=== PATIENT | male | born 1930 | race Caucasian/White ===

== ENCOUNTER 2018-03-11 10:49 | Observation (INO) | payer MEDICARE ==
[2018-03-11 11:32] LABS: #Eosinphils 0.1 thou/uL (0.0-0.7); #Lymphocytes 2.2 thou/uL (1.20-3.40); #Monocytes 0.7 thou/uL (0.11-0.59); #Neutrophils 8.2 thou/uL (1.40-6.50); %Basophils 0.2 % (0.0-1.0); %Eosinophils 0.6 % (0.0-10.0); %Lymphocytes 19.8 % (21.0-51.0); %Monocytes 5.8 % (0.0-10.0); %Neutrophils 73.7 % (42.0-75.0); Hemoglobin 13.1 g/dL (14.0-18.0); Mean Corpuscular HGB CONC 33.3 g/dL (32.0-36.0); Mean Corpuscular Hemoglobin 28.9 pg (27.0-31.0); Mean Corpuscular Volume 86.9 fL (78.0-98.0); Mean Platelet Volume 7.5 fL (7.4-10.4); Platelet Count 363 thou/uL (130-400); Red Blood Cell (RBC) Count 4.52 mill/uL (4.70-6.10); White Blood Cell (WBC) Count 11.2 thou/uL (4.8-10.8)
[2018-03-11 11:52] LABS: ALT (SGPT) 28 U/L (8-55); AST (SGOT) 28 U/L (5-34); Albumin 3.6 g/dL (3.4-4.8); Alkaline Phosphatase 77 U/L (40-150); Anion Gap 17 mmol/L (10-20); BUN (Urea Nitrogen) 14 mg/dL (8.4-25.7); Bilirubin, Total 0.6 mg/dL (0.2-1.2); CK (CPK) 145 U/L (30-200); Calc. Creatinine Clearance 0 mL/min (70-130); Calcium 10.5 mg/dL (7.8-10.44); Carbon Dioxide 24 mmol/L (23-31); Chloride 100 mmol/L (98-107); Estimated GFR-MDRD 62; Globulin 3.6 g/dL (2.4-3.5); Glucose 125 mg/dL (83-110); Lipase 30 U/L (8-78); Potassium 3.1 mmol/L (3.5-5.1); Protein, Total 7.2 g/dL (5.8-8.1); Sodium 138 mmol/L (136-145)
--- NOTE | 2018-03-11 12:06 | RAD ---
PORTABLE CHEST: History: Mental status change. Comparison: 2012 FINDINGS: Lungs appear clear of acute infiltrate. Mild interstitial prominence in the right lung was noted on p rior study. No evidence of vascular congestion or edema. Heart and mediastinum are unremarkable. IMPRESSION: No evidence of acute process. POS: [facility]
--- NOTE | 2018-03-11 12:08 | CT ---
CT HEAD WITHOUT CONTRAST: Technique: Multiple contiguous axial images were obtained through the head without IV enhancement. Indications: Mental status change. FINDINGS: Mild to moderate cortical atrophy and associated ventriculomegaly which appears appropriate to the de gree of atrophy. No mass or hemorrhage. No evidence of cortical infarct. There is opacification of the right frontal sinus and anterior ethmoid air cells. The visualized maxi llary sinuses, sphenoid sinus and mastoid air cells are clear. IMPRESSION: 1. Cortical atrophy consistent with age. No acute intracranial process. 2. Opacification of the right frontal sinus and anterior ethmoid air cells. POS: [facility]
[2018-03-11 13:01] LABS: Bilirubin Moderate (Negative); Blood, Urine Small (Negative); Clarity CLEAR (Clear); Glucose, Urine (Dipstick) Negative (Negative); Leukocyte Trace (Negative); Nitrite Negative (Negative); Protein, Urine (Dipstick) 100 mg/dL (Neg-Trace); Specific Gravity, Urine 1.014 (1.002-1.036)
[2018-03-11 13:03] LABS: Bacteria/HPF None Seen HPF (None Seen); Hyaline Casts/LPF 7-10 HYALINE CAST LPF (0-3 Hyaline); Pathc Cast-AUWi Flag 1.59 (0-2.49); Squamous Epithelial 0-3 HPF (0-3)
[2018-03-11] MEDS ORDERED: Senokot S 8.6-50 MG TAB PO PRN (15:58)
[2018-03-11] MEDS ORDERED: Acetaminophen 650 MG Suppository PR PRN (15:58)
[2018-03-11] MEDS ORDERED: hydrALAZINE 20 MG/ML VIAL SLOW IVP PRN (15:58)
[2018-03-11] MEDS ORDERED: Acetaminophen 325 MG TAB PO PRN (15:58)
[2018-03-11] MEDS ORDERED: Potassium Chloride 20 MEQ TAB PO SCH (17:00)
--- NOTE | 2018-03-11 17:13 | HP ---
PRIMARY CARE PROVIDER: Dr. Ozzy Rai. CHIEF COMPLAINT: Weakness. HISTORY OF PRESENT ILLNESS: Mr. Sheikh is a pleasant 88-year-old gentleman, who was seen at [facility] on March 11, 2018. Mr. Sheikh is able to provide some history. Collateral history was obtained from family members by the bedside. Family reports that Mr. Sheikh has had progressively worsening cognition over the last 2 to 3 weeks. They particularly comment that his balance has been off over the last 2 or 3 weeks. They report that he has started having shuffling gait. It appears that Mr. Sheikh had a fall about a week ago. Two nights ago, he had another fall. He reports that he fell in his kitchen. He could not get up. He was able to get up the following day after one of his family members went to check on him. He was subsequently brought to the emergency room. REVIEW OF SYSTEMS: All other systems reviewed and found to be negative. PAST MEDICAL HISTORY: Benign prostate hypertrophy and dyslipidemia. He reports that he was on Crestor in the past, but was told that he no longer needed it. SURGICAL HISTORY: Tonsillectomy. PSYCHIATRIC HISTORY: None. SOCIAL HISTORY: The patient drinks one or two glasses of wine on a daily basis. FAMILY HISTORY: No family history of premature coronary artery disease. CODE STATUS: I discussed his code status. He is DNAR. ALLERGIES: NO KNOWN DRUG ALLERGIES. CURRENT MEDICATIONS: 1. Tamsulosin 0.4 mg daily. 2. Aspirin 81 mg daily. 3. Finasteride 5 mg daily. PHYSICAL EXAMINATION: GENERAL: On examination, Mr. Sheikh is awake and alert, not in acute distress. VITAL SIGNS: Blood pressure is 166/99, pulse 74, respiratory rate 12, and oxygen saturation 97% on room air. He is afebrile. EYES: No scleral icterus, no conjunctival pallor. ENT: Dry mucosal membranes, no oropharyngeal erythema or exudates. NECK: Supple, nontender, trachea is midline. RESPIRATORY: Accessory muscles of breathing are not active. Chest wall movements are symmetric bilaterally. LUNGS: Clear to auscultation without wheeze, rhonchi, or crepitations. CARDIOVASCULAR: S1 and S2 are heard, regular. Peripheral pulses palpable. No carotid bruit. No pericardial rub. ABDOMEN: Soft, nontender, bowel sounds heard. No hepatomegaly, no splenomegaly. NEUROLOGIC: Cranial nerves 2 through 12 are intact. Power is 5/5 in all four extremities. Deep tendon reflexes are 2+, plantar reflexes downgoing bilaterally. No focal motor or sensory deficits. I was unable to ambulate the patient. Emergency room physician examined him for Romberg's and reports that he had a positive Romberg's, falling to his right. MUSCULOSKELETAL: Power is 5/5 in all four extremities. SKIN: No rashes or subcutaneous nodules. LYMPHATIC: No cervical lymphadenopathy. PSYCHIATRIC: Normal mood, normal affect. The patient is oriented to person, place, and time. LABORATORY DATA: Mr. Sheikh' labs and investigations were reviewed. I reviewed his electrocardiogram, which shows normal sinus rhythm, no ST changes to suggest an acute coronary syndrome. I also reviewed his chest x-ray, which does not show any pulmonary infiltrates. Noncontrast CT scan of the brain showed cortical atrophy consistent with age, no acute intracranial process and opacification of the right frontal sinus and anterior ethmoidal air cells. He has leukocytosis with 11,200 white cells, of which 73.7% are neutrophils, normocytic anemia with hemoglobin 13.1, normal platelet count of 363,000, normal sodium, decreased potassium of 3.1, normal troponin-I, normal lipase, unremarkable liver profile, and urinalysis that is positive for trace amount of leukocyte esterase, ketones and blood. ASSESSMENT AND PLAN: Mr. Sheikh is a pleasant 88-year-old gentleman, who was seen at [facility] on March 11, 2018. His problem list includes: 1. Weakness: Mr. Sheikh is presenting with weakness, etiology unclear. He will be admitted to the hospital for further investigations, including stroke workup. We will check MRI of the brain, 2D echocardiogram and carotid Dopplers. We will consult Neurology Service. We will add Plavix to aspirin, which he is already taking. 2. Hypokalemia: We will replace potassium and recheck. 3. Benign prostate hypertrophy: Appears to be stable, we will continue tamsulosin and finasteride. 4. Dyslipidemia: The patient is currently not on statins. There is evidence of stroke, he will be started on statin. Many thanks for allowing me to participate in your patient's care. Please feel free to contact me with any questions or concerns. LEVEL OF RISK: High. LEVEL OF COMPLEXITY: High. Job ID: [id number]
--- NOTE | 2018-03-11 18:29 | MRI ---
BRAIN MRI NONCONTRAST: 03/11/18 INDICATION: Gait imbalance, with falling episodes. Clinical concern for stroke. FINDINGS: There is prominence of ventricular system with mild global atrophy. There is no acute territorial inf arction, intracranial mass effect of midline shift. Mild periventricular white matter signal abnormal ity is present. Skull base flow voids are maintained. There is paranasal sinus opacification involvin g right frontal air cell with associated periosteal thickening as well as bilateral anterior ethmoid air cells. IMPRESSION: Global atrophy with compensatory dilatation of ventricular system. Minimal periventricular white matter signal abnormality. Frontal and ethmoidal sinus inflammatory opacification with associated periosteal thickening and scle rosis about the right frontal air cell. POS: [facility]
[2018-03-11] MEDS: Sodium Chloride 0.9% 1,000 ML IV SCH (19:15)
[2018-03-11 19:26] VITALS: BMI 21.3
--- NOTE | 2018-03-11 21:24 | ULT ---
CAROTID DOPPLER 03/11/18 PROVIDED CLINICAL HISTORY: Stroke. FINDINGS: Vaughn scale and color doppler sonography with spectral analysis was performed of the extracranial bush tid system bilaterally. There is no evidence for a hemodynamically significant internal carotid artery stenosis by peak systo lic velocity or ratio criteria. Antegrade flow is seen in the vertebral arteries. There is nonspecifi c elevation of peak systolic velocity within the proximal right common carotid artery to 191 cm/s. IMPRESSION: 1. No evidence for a hemodynamically significant internal carotid artery stenosis. 2. Focally elevated velocity within the proximal right common carotid artery may reflect stenosi s. Consider correlation with CT angiography. POS: [facility]
[2018-03-12 04:46] LABS: #Eosinphils 0.1 thou/uL (0.0-0.7); #Lymphocytes 2.3 thou/uL (1.20-3.40); #Monocytes 0.5 thou/uL (0.11-0.59); #Neutrophils 4.5 thou/uL (1.40-6.50); %Basophils 0.3 % (0.0-1.0); %Eosinophils 1.6 % (0.0-10.0); %Lymphocytes 30.6 % (21.0-51.0); %Monocytes 7.2 % (0.0-10.0); %Neutrophils 60.3 % (42.0-75.0); Hemoglobin 10.7 g/dL (14.0-18.0); Mean Corpuscular HGB CONC 33.2 g/dL (32.0-36.0); Mean Corpuscular Hemoglobin 28.7 pg (27.0-31.0); Mean Corpuscular Volume 86.3 fL (78.0-98.0); Mean Platelet Volume 7.7 fL (7.4-10.4); Platelet Count 273 thou/uL (130-400); Red Blood Cell (RBC) Count 3.72 mill/uL (4.70-6.10); White Blood Cell (WBC) Count 7.4 thou/uL (4.8-10.8)
[2018-03-12 05:10] LABS: Anion Gap 13 mmol/L (10-20); BUN (Urea Nitrogen) 15 mg/dL (8.4-25.7); Calc. Creatinine Clearance 47 mL/min (70-130); Calcium 9.3 mg/dL (7.8-10.44); Carbon Dioxide 26 mmol/L (23-31); Cardiac Risk 5.2 (Less than 4.5); Chloride 105 mmol/L (98-107); Cholesterol 186 mg/dl (< 200 Desired); Estimated GFR-MDRD 63; Glucose 114 mg/dL (83-110); HDL Cholesterol 36 mg/dL (>60 Neg Risk); LDL Cholesterol, Calculated 126 mg/dL; Potassium 3.2 mmol/L (3.5-5.1); Sodium 141 mmol/L (136-145); Triglycerides 121 mg/dL (Less than 150)
[2018-03-12] MEDS: Sodium Chloride 0.9% 1,000 ML IV SCH (06:38)
[2018-03-12] MEDS: Potassium Chloride 20 MEQ TAB PO SCH ×2 (08:42→12:35)
[2018-03-12] MEDS: Enoxaparin Sodium 40 MG/0.4 ML SYRINGE SC SCH (08:43)
[2018-03-12] MEDS: Aspirin 81 mg Enteric Coated Tablet PO SCH (08:43)
[2018-03-12] MEDS: Clopidogrel Bisulfate 75 MG TAB PO SCH (08:43)
[2018-03-12] MEDS ORDERED: Iopamidol 370 76% 100 ML VIAL ONE (11:22)
--- NOTE | 2018-03-12 11:50 | CT ---
CT ANGIOGRAM NECK WITH IV CONTRAST AND 3D RECONSTRUCTIONS: Date: 03/12/18 HISTORY: Right common carotid artery stenosis. Stroke. Chronic ischemic changes. FINDINGS: There is a normal arrangement of the great vessels at the aortic arch, which are patent. Minimal vasc ular calcifications are seen involving the origin of the left subclavian artery. However, the subclav sabrina arteries, as well as innominate arteries, are otherwise patent bilaterally. The bilateral common carotid arteries are patent. Dense atherosclerotic vascular calcifications are seen at the carotid artery bifurcations bilaterally , as well as involving the proximal internal carotid arteries bilaterally, but there is less than 50% maximal stenosis involving the bilateral internal carotid arteries based on NASCET criteria. The int ernal carotid arteries at the carotid siphons are patent with only mild calcified atherosclerotic irr egularity present. The right vertebral artery is dominant and patent. Left vertebral artery is tortuous and smaller in c aliber, but also demonstrates patency. The basilar artery is patent. There is a type origin of the right posterior cerebral artery with a prominent posterior communicating artery versus type origin of the left posterior cerebral artery, which also appears patent. There are interstitial densities seen in the upper lung zones bilaterally, also seen on prior CT exam of 2012, and likely related to chronic interstitial lung changes. There is an 11.0 mm nodular densit y seen at the posterior aspect right upper lobe adjacent to the most superior aspect of the major fis sure, also seen on prior study in 2012, and is stable in size suggesting a benign finding, and there is suggestion of calcifications within this nodule centrally and this may represent a calcified granu will. Multilevel degenerative changes are seen in the cervical and visualized upper thoracic spine. There i s asymmetric prominence of the right mandibular condyle compared to the left, but there is evidence o f temporomandibular joint degenerative changes bilaterally given joint space narrowing, greater on th e right. Calcified mediastinal and right hilar lymph nodes are present. Remote left clavicle fracture is present. IMPRESSION: 1. Less than 50% maximal stenosis involving the bilateral internal carotid arteries according to TORSTEN CET criteria. 2. Patent and dominant right vertebral artery with smaller in caliber and tortuous but patent left v ertebral artery. 3. Chronic lung changes with nodular density posterior aspect right upper lobe, with suggestion of c alcification probably related to a calcified granuloma. POS: [facility]
--- NOTE | 2018-03-12 13:33 | PDOC.PN ---
- Subjective Encounter Start Date: 03/12/18 Encounter Start Time: 11:00 Pt seen for followup re; weakness. Says he feels well. - Objective Resuscitation Status - Order Detail: 03/11/18 15:58 Resuscitation Status Routine Resuscitation Status: DNAR: NO Resuscitation Discussed with: patient and daughter TORIN Reviewed: Yes Vital Signs & Weight: Vital Signs (12 hours) Temp Pulse Pulse Pulse Resp BP BP 03/12/18 11:38 98.0 F 73 18 03/12/18 11:15 03/12/18 11:07 70 80 163/83 H 03/12/18 07:45 98.6 F 74 16 03/12/18 04:00 98.0 F 71 18 136/73 BP BP Pulse Ox 03/12/18 11:38 181/99 H 98 03/12/18 11:15 96 03/12/18 11:07 181/99 H 03/12/18 07:45 154/75 H 95 03/12/18 04:00 136/73 98 Weight Weight 152 lb 14.4 oz I&O: 03/11/18 03/12/18 03/13/18 06:59 06:59 06:59 Intake Total 1031 Output Total 300 Balance 731 Result Diagrams: 03/12/18 04:10 03/12/18 04:10 EKG Reviewed by me: Yes (tele: NSR) Phys Exam - Physical Examination Constitutional: NAD HEENT: moist MMs Neck: supple Respiratory: clear to auscultation bilateral Cardiovascular: RRR Gastrointestinal: soft Neurological: non-focal, normal sensation, moves all 4 limbs Psychiatric: normal affect Dx/Plan (1) Generalized weakness Code(s): R53.1 - WEAKNESS Status: Acute Comment: workup in progress (2) Hypokalemia Code(s): E87.6 - HYPOKALEMIA Status: Acute Comment: replace potassium (3) Falls Code(s): W19.XXXA - UNSPECIFIED FALL, INITIAL ENCOUNTER Status: Acute Comment: Inpt Rehab vs for PT (4) BPH (benign prostatic hyperplasia) Code(s): N40.0 - BENIGN PROSTATIC HYPERPLASIA WITHOUT LOWER URINRY TRACT SYMP Status: Chronic Comment: stable (5) HTN (hypertension) Code(s): I10 - ESSENTIAL (PRIMARY) HYPERTENSION Status: Chronic Comment: Blood pressure high, add amlodipine - Plan * . Review of Systems - Review of Systems Constitutional: weakness Respiratory: negative: Cough, Shortness of Breath, SOB with Excertion, Pleuritic Pain, Wheezing Cardiovascular: negative: chest pain, palpitations, orthopnea, paroxysmal nocturnal dyspnea, edema, light headedness - Medications/Allergies Allergies/Adverse Reactions: Allergies Allergy/AdvReac Type Severity Reaction Status Date / Time No Known Drug Allergies Allergy Verified 03/11/18 18:13 Medications: Current Medications Acetaminophen (Tylenol) 650 mg PO Q4H PRN PRN Reason: Headache/Fever/Mild Pain (1-3) Acetaminophen (Tylenol) 650 mg CO Q4H PRN PRN Reason: Headache/Fever/Mild Pain (1-3) Aspirin (Ecotrin) 81 mg PO DAILY [facility] Last Admin: 03/12/18 08:43 Dose: 81 mg Clopidogrel Bisulfate (Plavix) 75 mg PO DAILY [facility] Last Admin: 03/12/18 08:43 Dose: 75 mg Enoxaparin Sodium (Lovenox) 40 mg SC 0900 [facility] Last Admin: 03/12/18 08:43 Dose: 40 mg Hydralazine HCl (Apresoline) 10 mg SLOW IVP Q4H PRN PRN Reason: BP > 220/110 Sodium Chloride (Normal Saline 0.9%) 1,000 mls @ 70 mls/hr IV .[id number] [facility] Last Admin: 03/12/18 06:38 Dose: 1,000 mls Senna/Docusate Sodium (Senokot S) 2 tab PO BID PRN PRN Reason: Constipation Sodium Chloride (Flush - Normal Saline) 10 ml IVF PRN PRN PRN Reason: Saline Flush
[2018-03-12] MEDS ORDERED: Amlodipine 5 MG TAB PO SCH (14:00)
--- NOTE | 2018-03-12 14:42 | CON ---
DATE OF CONSULTATION: 03/12/2018 CONSULTING PHYSICIAN: Hospitalist Services. IMPRESSION: Imbalance. PLAN: 1. B12 level. 2. Rehab screening. HISTORY OF PRESENT ILLNESS: Mr. Sheikh is an 88-year-old man, who lives alone in the [place] area. He has had a relatively acute decline in balance according to his daughter since Adams time. He was at the house on Thursday night when he lost his balance and fell in the kitchen. He was unable to get up on his own. The following day, a friend came in to check on him and found him on the floor. He subsequently helped him to the bed and he stayed there for the following night. Yesterday, they decided to go ahead and bring him into the hospital to get it checked out. He had a CT scan of the brain and MRI of the brain done yesterday and both of which only showed cerebral atrophy, but no acute ischemic changes or other significant findings. He had a carotid ultrasound, which was also unremarkable. Laboratory studies included CBCs, serum chemistries, and urinalysis. Nothing remarkable was found. His vital signs have been unremarkable as well with blood pressures around 155/80. He is without any complaints of lightheadedness or vertigo. He does not report any loss of sensation in his feet. He does not report any lateralized weakness or localized loss of strength. PAST MEDICAL HISTORY: Otherwise negative. ALLERGIES: NONE REPORTED. SOCIAL HISTORY: No tobacco or alcohol use. FAMILY HISTORY: Noncontributory. MEDICATIONS: 1. Aspirin. 2. Plavix. 3. Apresoline. REVIEW OF SYSTEMS: No complaint of headache, dizziness, nausea, or vomiting. No complaint of neck pain or difficulty swallowing. No complaint of chest pain or shortness of breath. No complaint of abdominal pain, cramps, or diarrhea. No complaint of joint pain. No complaint of peripheral edema. PHYSICAL EXAMINATION: VITAL SIGNS: Blood pressure 154/75, pulse 74, respirations 16, and temperature 98.6. HEENT: Pupils are equal. Conjunctivae are clear. Oropharynx clear. Cranium; normocephalic and atraumatic. NECK: Supple. No lymphadenopathy. EXTREMITIES: No cyanosis, clubbing, or edema. There is limited mobility of the joints of the right hand. NEUROLOGIC: He is alert and appropriate. His speech is fluent and clear. Cranial nerves are intact. Motor exam shows equal strength. There is no fix or drift. No tremor or dysmetria is present. Rapid alternating movements were equal. Tone was within normal limits without cogwheel rigidity. Gait was significantly impaired with a tendency to fall backward. He could pace in place if you provided some stability. Sensation was intact in the feet with normal proprioception. Reflexes were diffusely suppressed. IMAGING: Reviewed. SUMMARY: This is an 88-year-old gentleman with progressive difficulty with balance. It is very unlikely will have a correctable cause, but he might benefit from some rehab. B12 level will be checked, and rehab screening will be undertaken. Otherwise, a plan to make arrangements at the house to have some supportive personnel to give him a hand. Job ID: [id number]
[2018-03-13] MEDS: Sodium Chloride 0.9% 1,000 ML IV SCH (00:30)
[2018-03-13 04:41] LABS: #Eosinphils 0.1 thou/uL (0.0-0.7); #Lymphocytes 1.8 thou/uL (1.20-3.40); #Monocytes 0.4 thou/uL (0.11-0.59); #Neutrophils 3.5 thou/uL (1.40-6.50); %Basophils 0.5 % (0.0-1.0); %Lymphocytes 31.1 % (21.0-51.0); %Monocytes 7.5 % (0.0-10.0); %Neutrophils 59.9 % (42.0-75.0); Hemoglobin 10.5 g/dL (14.0-18.0); Mean Corpuscular HGB CONC 33.3 g/dL (32.0-36.0); Mean Corpuscular Hemoglobin 28.8 pg (27.0-31.0); Mean Corpuscular Volume 86.6 fL (78.0-98.0); Mean Platelet Volume 7.6 fL (7.4-10.4); Platelet Count 278 thou/uL (130-400); Red Blood Cell (RBC) Count 3.65 mill/uL (4.70-6.10); White Blood Cell (WBC) Count 5.9 thou/uL (4.8-10.8)
[2018-03-13 05:01] LABS: Anion Gap 11 mmol/L (10-20); BUN (Urea Nitrogen) 12 mg/dL (8.4-25.7); Calc. Creatinine Clearance 58 mL/min (70-130); Carbon Dioxide 26 mmol/L (23-31); Chloride 107 mmol/L (98-107); Estimated GFR-MDRD 80; Glucose 109 mg/dL (83-110); Potassium 3.5 mmol/L (3.5-5.1); Sodium 140 mmol/L (136-145)
[2018-03-13] MEDS: Clopidogrel Bisulfate 75 MG TAB PO SCH (08:50)
[2018-03-13] MEDS: Enoxaparin Sodium 40 MG/0.4 ML SYRINGE SC SCH (08:50)
[2018-03-13] MEDS: Aspirin 81 mg Enteric Coated Tablet PO SCH (08:50)
[2018-03-13] MEDS ORDERED: Finasteride 5 MG TAB PO SCH (09:00)
[2018-03-13] MEDS ORDERED: Amlodipine 5 MG TAB PO SCH (09:00)
[2018-03-13] MEDS ORDERED: Tamsulosin HCl 0.4 MG CAP PO SCH (09:00)
[2018-03-13 12:05] VITALS: BP 132/72; TEMP 98.1
--- NOTE | 2018-03-13 17:06 | DIS ---
DATE OF ADMISSION: 03/11/2018 DATE OF DISCHARGE: 03/13/2018 PRIMARY CARE PROVIDER: Ozzy Rai, DISCHARGE DIAGNOSES: 1. Imbalance. 2. Falls. 3. Hypokalemia. CONDITION OF PATIENT ON THE DAY OF DISCHARGE: Stable. I assessed Mr. Sheikh on the day of discharge. He denies any chest pain or shortness of breath. Vital signs are stable. S1 and S2 are heard, regular. Lungs are clear to auscultation bilaterally. DISCHARGE MEDICATIONS: 1. Finasteride 5 mg daily. 2. Tamsulosin 0.4 mg daily. 3. Amlodipine 5 mg daily. 4. Aspirin 81 mg daily. CONSULTATIONS DURING THIS HOSPITALIZATION: Neurology, Sinan Darling MD HOSPITAL COURSE: Mr. Sheikh is a pleasant 88-year-old gentleman, who was admitted to [facility] on March 11, 2018. Please refer to my history and physical note dated March 11, 2018, for further details. He was seen by Neurology Service. MRI of the brain showed global atrophy with compensatory dilatation of ventricular system, minimal periventricular white matter signal abnormality and frontal and ethmoid sinus inflammatory opacification with associated periosteal thickening and sclerosis about the right frontal air cell. Carotid Dopplers did not show any evidence for hemodynamically significant internal carotid artery stenosis. CT angiogram of the neck, less than 50% maximal stenosis involving bilateral internal carotid arteries, patent and dominant right vertebral artery with smaller in caliber and tortuous, but patent left vertebral artery and chronic lung changes with a nodular density posterior aspect of the right upper lobe with suggestion of calcification probably related to a calcified granuloma. A 2D echocardiogram showed left ventricular ejection fraction of 50% to 55%, E/A flow reversal suggestive of diastolic dysfunction, normal right atrium size, moderate mitral regurgitation, and mild tricuspid regurgitation. His vitamin B12 level was in the normal range at 497. Fasting lipid panel showed triglycerides 121, cholesterol 186, LDL cholesterol 126, and HDL cholesterol 36. Neurology Service felt that his progressive difficulty with balance is unlikely to have a correctable cause, but he might benefit from rehab. The patient is being discharged to [facility] for further management. Many thanks for allowing me to participate in your patient's care. Please feel free to contact me with any questions or concerns. On the day of discharge, Mr. Sheikh has sodium of 140, potassium 3.5, and creatinine 0.90. White count 5900, hemoglobin 10.5, and platelet count 278. He did have hypokalemia, with a potassium level of 3.1 on March 11, 2018. DISCHARGE DESTINATION: [facility]. Job ID: [id number]
== END 2018-03-13 15:54 | disposition home or self-care (01) ==
LOC: ERS 10:49 → ERHOLD 14:30 → 2SE 17:33
PROVIDERS: ADMIT Internal Medicine; ATTEND Internal Medicine
DX: R26.89 Other abnormalities of gait and mobility (principal); E87.6 Hypokalemia; I08.1 Rheumatic disorders of both mitral and tricuspid valves; R53.1 Weakness; N40.0 Benign prostatic hyperplasia without lower urinary tract symptoms; E78.5 Hyperlipidemia, unspecified; I10 Essential (primary) hypertension; Z66 Do not resuscitate; Z79.82 Long term (current) use of aspirin; Z79.02 Long term (current) use of antithrombotics/antiplatelets; Z79.899 Other long term (current) drug therapy; W19.XXXA Unspecified fall, initial encounter
CPT/HCPCS: 70450; 70498; 70551; 71045; 80048 ×2; 80053; 80061; 82550; 82607; 83690; 84484; 85025 ×3; 87804 ×2; 93005; 93306; 93880; 96360; 96361 ×3; 96372 ×2; 97116 ×2; 97139; 97535; 99285; G0378 ×2; 36415; 81003; 81015; J1650